=== PATIENT | male | born 1965 | race Caucasian/White ===

== ENCOUNTER 2016-06-25 09:20 | Day surgery (SDC) | payer OTHER, SELFPAY ==
--- NOTE | ~2016-06-25 | EGD ---
EGD REPORT [facility] [address] [address] NAME: LINA CHARLES : 65 STATUS : REG [facility]#: [id number] AGE: 50 ADM/REG DATE : 06/25/16 MR#: [id number] REPORT SERV DATE: 06/25/16 DICTATED BY: NOLVIA DURAN DATE: 06/25/16 REPORT STATUS : Draft [facility] DATE: 06/25/16 [facility] Patient Name: Lina Charles Date of : 1965 Attending MD: NOLVIA DURAN MD Procedure Date No Time: 06/25/2016 Procedure: Upper GI endoscopy Indications: Heartburn, Suspected esophageal reflux Referring MD: SHRUTHI CONROY MD Medicines: as per anesthesia Complications: No immediate complications. Procedure: Pre-Anesthesia Assessment: - ASA Grade Assessment: III - A patient with severe systemic disease. After obtaining informed consent, the endoscope was passed under direct vision. Throughout the procedure, the patient's blood pressure, pulse, and oxygen saturations were monitored continuously. The GIF H190 [id number] was introduced through the mouth, and advanced to the third part of duodenum. The upper GI endoscopy was accomplished without difficulty. The patient tolerated the procedure. Findings: There were esophageal mucosal changes suspicious for short-segment Massey's esophagus present in the lower third of the esophagus. The maximum longitudinal extent of these mucosal changes was 2 cm in length. Mucosa was biopsied with a cold forceps for histology randomly at intervals of 1 cm in the lower third of the esophagus. One specimen bottle was sent to pathology. A few sessile polyps were found in the gastric body. Biopsies were taken with a cold forceps for histology. The cardia and gastric fundus were normal on retroflexion. The examined duodenum was normal. Impression: - Esophageal mucosal changes suspicious for short-segment Massey's esophagus. Biopsied. - A few gastric polyps. Biopsied. - Normal examined duodenum. Recommendation: - Await pathology results. - Follow an antireflux regimen. - Continue present medications. Procedure Code(s): --- Professional --- EGD REPORT [facility] [address] [facility] [place] [address] NAME: LINA CHARLES : 65 STATUS : REG [facility]#: [id number] AGE: 50 ADM/REG DATE : 06/25/16 MR#: [id number] REPORT SERV DATE: 06/25/16 DICTATED BY: NOLVIA DURAN DATE: 06/25/16 REPORT STATUS : Draft TRANSCRIBED BY: [employer] DATE: 06/25/16 13394, Esophagogastroduodenoscopy, flexible, transoral; with biopsy, single or multiple Diagnosis Code(s): --- Professional --- K22.9, Disease of esophagus, unspecified K31.7, Polyp of stomach and duodenum R12, Heartburn CPT copyright 2013 [employer]. All rights reserved. The codes documented in this report are preliminary and upon clinical coder review may be revised to meet current compliance requirements. NOLVIA DURAN MD 06/25/2016 11:53 AM This report has been signed electronically. Number of Addenda: 0 Note Initiated On: 06/25/2016 11:33 AM Scope Withdrawal Time 0 hours 0 minutes [address] [facility] [place] [address]
--- NOTE | ~2016-06-25 | EGD ---
EGD REPORT [facility] [address] [address] NAME: LINA CHARLES : [birth year] STATUS : REG [facility]#: [id number] AGE: 50 ADM/REG DATE : 06/25/16 MR#: [id number] REPORT SERV DATE: 06/25/16 DICTATED BY: NOLVIA DURAN DATE: 06/25/16 REPORT STATUS : Draft TRANSCRIBED BY: [employer] DATE: 06/25/16 Endoscopy Center Patient Name: Lina Charles Date of : 1965 Attending MD: NOLVIA DURAN MD Procedure Date No Time: 06/25/2016 Procedure: Colonoscopy Indications: Abdominal pain in the left lower quadrant, FH of Colonic Polyps - 1st degree relative, Constipation Referring MD: SHRUTHI CONROY MD Medicines: as per anesthesia Complications: No immediate complications. Procedure: Pre-Anesthesia Assessment: - ASA Grade Assessment: III - A patient with severe systemic disease. After I obtained informed consent, the scope was passed under direct vision. Throughout the procedure, the patient's blood pressure, pulse, and oxygen saturations were monitored continuously. The PCF [id number] was introduced through the anus and advanced to the cecum, identified by appendiceal orifice and ileocecal valve. The colonoscopy was performed without difficulty. The patient tolerated the procedure. The quality of the bowel preparation was fair. Findings: The perianal and digital rectal examinations were normal. Internal hemorrhoids were found during endoscopy and were mild. Impression: - Internal hemorrhoids. Recommendation: - Repeat colonoscopy in 5 years for surveillance. Procedure Code(s): --- Professional --- 61998, Colonoscopy, flexible, proximal to splenic flexure; diagnostic, with or without collection of specimen(s) by brushing or washing, with or without colon decompression (separate procedure) Diagnosis Code(s): --- Professional --- K64.8, Other hemorrhoids R10.32, Left lower quadrant pain Z83.71, Family history of colonic polyps K59.00, Constipation, unspecified EGD REPORT [facility] [address] [address] NAME: LINA CHARLES : [birth year] STATUS : REG [facility]#: [id number] AGE: 50 ADM/REG DATE : 06/25/16 MR#: [id number] REPORT SERV DATE: 06/25/16 DICTATED BY: NOLVIA DURAN. DATE: 06/25/16 REPORT STATUS : Draft TRANSCRIBED BY: [employer] DATE: 06/25/16 CPT copyright 2013 [employer]. All rights reserved. The codes documented in this report are preliminary and upon medical billing coder review may be revised to meet current compliance requirements. NOLVIA DURAN MD 06/25/2016 12:25 PM This report has been signed electronically. Number of Addenda: 0 Note Initiated On: 06/25/2016 11:32 AM Scope Withdrawal Time 0 hours 8 minutes 55 seconds [address] [address]
[~2016-06-25 09:20] MED LIST: CIP5 PO; CO Q-10100 MG PO; HUMAPUMP SC; LIOR10 PO; MIRALAX POWDER1 PKT PO; MULTIPLE VIT PO; NORCO1 TA2 PO; PRAVACHOL40 MG PO; PRILO PO; REG PO; TESS PO; ULTRAM50 PO; VASOTEC10 PO; WELLSR150 PO
== END 2016-06-25 23:59 | disposition home or self-care (01) ==
LOC: DMU 09:20
PROVIDERS: Internal Medicine Gastroenterology
PROC: 0DB68ZX Excision of Stomach, Via Natural or Artificial Opening Endoscopic, Diagnostic (ICD-10-PCS; 2016-06-25)
PROC: 0DJD8ZZ Inspection of Lower Intestinal Tract, Via Natural or Artificial Opening Endoscopic (ICD-10-PCS; principal; 2016-06-25 11:00)
PROC: 0DB38ZX Excision of Lower Esophagus, Via Natural or Artificial Opening Endoscopic, Diagnostic (ICD-10-PCS; 2016-06-25 11:00)
DX: K31.7 Polyp of stomach and duodenum (principal); K64.8 Other hemorrhoids; R10.32 Left lower quadrant pain; K59.00 Constipation, unspecified; K22.9 Disease of esophagus, unspecified; R12 Heartburn; I10 Essential (primary) hypertension; E11.9 Type 2 diabetes mellitus without complications; G89.29 Other chronic pain; F11.90 Opioid use, unspecified, uncomplicated; E66.9 Obesity, unspecified; K21.9 Gastro-esophageal reflux disease without esophagitis; Z87.891 Personal history of nicotine dependence; Z79.899 Other long term (current) drug therapy; Z83.71 Family history of colonic polyps; Z79.891 Long term (current) use of opiate analgesic; Z79.4 Long term (current) use of insulin; Z88.5 Allergy status to narcotic agent
CPT/HCPCS: 82962; 88305